=== PATIENT | female | born 1990 | race Caucasian/White ===

== ENCOUNTER 2017-08-14 00:46 | Emergency (ER) | payer SELFPAY ==
[2017-08-14] MEDS ORDERED: NS 1,000 ML IV ONE ×2 (01:09→02:36)
--- NOTE | 2017-08-14 01:09 | EDPHY ---
H & P Stated Complaint: N/V FOR 2 WEEKS, WORSE THE LAST COUPLE DAYS Time Seen by Provider: 08/14/17 00:54 HPI/ROS: CHIEF COMPLAINT: , vomiting HISTORY OF PRESENT ILLNESS: 27-year-old female last menstrual period 06/19 complaining of 3 days of nausea, vomiting. She had 1 episode of vaginal bloody spotting 3 days ago now resolved. No abdominal pain. No back pain. No urinary abnormality. No OBGYN follow-up yet as she recently found out she was with positive home test. No fever or chills. No trauma. PRIMARY CARE PROVIDER: [facility] REVIEW OF SYSTEMS: A ten point review of systems was performed and is negative with the exception of the items mentioned in the HPI PAST MEDICAL & SURGICAL HISTORY: LMP 06/19/2017 SOCIAL HISTORY: Nonsmoker PHYSICAL EXAM (Prior to examination, patient consented to physical exam, hands were washed and my usual and customary physical exam procedures followed) 1) GENERAL: Well-developed, well-nourished, alert and oriented. Appears to be in no acute distress. 2) HEAD: Normocephalic, atraumatic 3) HEENT: Pupils equal, round, reactive to light bilaterally. Sclera anicteric. Nasopharynx, oropharynx, clear, no lesions. Moist mucous membranes 4) NECK: Full range of motion, no meningeal signs. 5) LUNGS: Clear auscultation bilaterally, no wheezes, no rhonchi, no retractions. 6) HEART: Regular rate and rhythm, no murmur, no heave, no gallop. 7) ABDOMEN: No guarding, no rebound, no focal tenderness, negative McBurney's, negative Jordan's, negative Rovsing's, negative peritoneal sign, unable to elicit any abdominal pain on exam 8) MUSCULOSKELETAL: Moving all extremities, no focal areas of tenderness, no obvious trauma. No peripheral edema or discoloration. 9) BACK: No CVA tenderness, no midline vertebral tenderness, no fluctuance, no step-off, no obvious trauma, no visual or palpable abnormality. 10) SKIN: No rash, no petechiae. 11) Psychiatric: Patient is oriented X 3, there is no agitation. DIFFERENTIAL DIAGNOSIS: In no particular include but limited to hyperemesis gravidarum, gastroenteritis, acute appendicitis, ectopic - Personal History LMP (Females 10-55): EDC: 03/28/18 Current Tetanus Diphtheria and Acellular Pertussis (TDAP): Yes - Medical/Surgical History Other PMH: KNEE SURGERY, TONSILECTOMY - Social History Smoking Status: Never smoked Constitutional: Initial Vital Signs Temperature (C) 37.1 C 08/14/17 00:50 Heart Rate 90 08/14/17 00:50 Respiratory Rate 16 08/14/17 00:50 Blood Pressure 142/94 H 08/14/17 00:50 O2 Sat (%) 96 08/14/17 00:50 O2 Delivery Mode Room Air Allergies/Adverse Reactions: No Known Allergies Allergy (Unverified 08/14/17 00:49) Home Medications: Medication Instructions Recorded Cephalexin [Keflex] 500 mg PO TID 7 Days cap 08/14/17 Promethazine HCl [Phenergan] 25 mg PO Q6 #15 tab 08/14/17 Medical Decision Making ED Course/Re-evaluation: 1:08 a.m.: Plan will be diagnostic studies, IV hydration including Rh as she notes a single episode of vaginal spotting a few days ago now resolved. No abdominal pain currently or recently. Will hold on diagnostic imaging at this time. Care of patient under supervision of secondary supervising physician Dr Shah with whom I discussed case . 1:42 a.m.: Re-evaluation after IV antiemetic, feeling improvement, would like to attempt oral fluid challenge. Discussed her laboratory results including Rh positive status. Also noted to have asymptomatic bacteriuria. Urine cultured she will be treated. We discussed asymptomatic bacteriuria in . Doubt pyelonephritis. Doubt urosepsis. - Data Points Laboratory Results: Laboratory Results 08/14/17 01:05 08/14/17 01:05 08/14/17 08/14/17 08/14/17 01:05 01:05 01:05 WBC 11.62 10^3/uL H 10^3/uL (3.80-9.50) RBC 4.89 10^6/uL 10^6/uL (4.18-5.33) Hgb 15.0 g/dL g/dL (12.6-16.3) Hct 42.4 % % (38.0-47.0) MCV 86.7 fL fL (81.5-99.8) MCH 30.7 pg pg (27.9-34.1) MCHC 35.4 g/dL g/dL (32.4-36.7) RDW 12.1 % % (11.5-15.2) Plt Count 346 10^3/uL 10^3/uL (150-400) MPV 9.3 fL fL (8.7-11.7) Neut % (Auto) 77.2 % H % (39.3-74.2) Lymph % (Auto) 16.4 % % (15.0-45.0) [place] % (Auto) 5.4 % % (4.5-13.0) Eos % (Auto) 0.3 % L % (0.6-7.6) Baso % (Auto) 0.3 % % (0.3-1.7) Nucleat RBC Rel Count 0.0 % % (0.0-0.2) Absolute Neuts (auto) 8.96 10^3/uL H 10^3/uL (1.70-6.50) Absolute Lymphs (auto) 1.91 10^3/uL 10^3/uL (1.00-3.00) Absolute Monos (auto) 0.63 10^3/uL 10^3/uL (0.30-0.80) Absolute Eos (auto) 0.03 10^3/uL 10^3/uL (0.03-0.40) Absolute Basos (auto) 0.04 10^3/uL 10^3/uL (0.02-0.10) Absolute Nucleated RBC 0.00 10^3/uL 10^3/uL (0-0.01) Immature Gran % 0.4 % % (0.0-1.1) Immature Gran # 0.05 10^3/uL 10^3/uL (0.00-0.10) Sodium 141 mEq/L mEq/L (134-144) Potassium 4.1 mEq/L mEq/L (3.5-5.2) Chloride 106 mEq/L mEq/L (97-110) Carbon Dioxide 19 mEq/l L mEq/l (22-31) Anion Gap 16 mEq/L mEq/L (8-16) BUN 7 mg/dL mg/dL (7-23) Creatinine 0.7 mg/dL mg/dL (0.6-1.0) Estimated GFR > 60 Glucose 102 mg/dL H mg/dL (70-100) Calcium 9.7 mg/dL mg/dL (8.5-10.4) Total Bilirubin 0.6 mg/dL mg/dL (0.1-1.4) Conjugated Bilirubin 0.3 mg/dL mg/dL (0.0-0.5) Unconjugated Bilirubin 0.3 mg/dL mg/dL (0.0-1.1) AST 27 IU/L IU/L (14-46) ALT 49 IU/L IU/L (9-52) Alkaline Phosphatase 74 IU/L IU/L (38-126) Total Protein 7.2 g/dL g/dL (6.3-8.2) Albumin 4.5 g/dL g/dL (3.5-5.0) Lipase 72 IU/L IU/L (23-300) Beta HCG, Quant Pending Urine Color Urine Appearance Urine pH Ur Specific [place] Urine Protein Urine Ketones Urine Blood Urine Nitrate Urine Bilirubin Urine Urobilinogen Ur Leukocyte Esterase Urine RBC Urine WBC Ur Epithelial Cells Urine Bacteria Urine Mucus Urine Glucose Urine Test Patient ABO/Rh B POSITIVE 08/14/17 08/14/17 01:00 01:00 WBC RBC Hgb Hct MCV MCH MCHC RDW Plt Count MPV Neut % (Auto) Lymph % (Auto) [place] % (Auto) Eos % (Auto) Baso % (Auto) Nucleat RBC Rel Count Absolute Neuts (auto) Absolute Lymphs (auto) Absolute Monos (auto) Absolute Eos (auto) Absolute Basos (auto) Absolute Nucleated RBC Immature Gran % Immature Gran # Sodium Potassium Chloride Carbon Dioxide Anion Gap BUN Creatinine Estimated GFR Glucose Calcium Total Bilirubin Conjugated Bilirubin Unconjugated Bilirubin AST ALT Alkaline Phosphatase Total Protein Albumin Lipase Beta HCG, Quant Urine Color [place] Urine Appearance MODERATELY TURBID Urine pH 5.0 (5.0-7.5) Ur Specific [place] 1.032 H (1.002-1.030) Urine Protein 1+ H (NEGATIVE) Urine Ketones 1+ H (NEGATIVE) Urine Blood 2+ H (NEGATIVE) Urine Nitrate NEGATIVE (NEGATIVE) Urine Bilirubin NEGATIVE (NEGATIVE) Urine Urobilinogen NEGATIVE EU EU (0.2-1.0) Ur Leukocyte Esterase 2+ H (NEGATIVE) Urine RBC 5-10 /hpf H /hpf (0-3) Urine WBC 15-25 /hpf H /hpf (0-3) Ur Epithelial Cells 1+ /lpf /lpf (NONE-1+) Urine Bacteria TRACE /hpf H /hpf (NONE SEEN) Urine Mucus 4+ /lpf H /lpf (NONE-1+) Urine Glucose NEGATIVE (NEGATIVE) Urine Test POSITIVE Patient ABO/Rh Medications Given: Discontinued Medications Cephalexin (Keflex 500 Mg Prepack#4) 1 btl TAKEHOME EDNOW ONE PRN Reason: Protocol Stop: 08/14/17 01:46 Last Admin: 08/14/17 02:00 Dose: 1 btl Cephalexin HCl (Keflex) 500 mg PO EDNOW ONE PRN Reason: Protocol Stop: 08/14/17 01:44 Last Admin: 08/14/17 02:00 Dose: 500 mg Sodium Chloride (Ns) 1,000 mls @ 0 mls/hr IV ONCE ONE PRN Reason: Wide Open Stop: 08/14/17 01:10 Last Admin: 08/14/17 01:12 Dose: 1,000 mls Ondansetron HCl (Zofran) 4 mg IVP EDNOW ONE Stop: 08/14/17 01:12 Last Admin: 08/14/17 01:13 Dose: Not Given Promethazine HCl (Phenergan) 25 mg IVP EDNOW ONE Stop: 08/14/17 01:14 Last Admin: 08/14/17 01:15 Dose: 12.5 mg Departure - Departure Disposition: Home, Routine, Self-Care Clinical Impression: Nausea and vomiting during , Hypovolemia Condition: Good Instructions: Cephalexin (By mouth), Nausea and Vomiting in (ED), Hyperemesis Gravidarum (ED) Additional Instructions: Seek immediate medical attention if you develop new or worsening symptoms, if you develop abdominal pain, fevers, chills, inability to tolerate oral intake or any other symptoms that concerns you. Referrals: [facility]. [Clinic] - 08/16/17 Prescriptions: Cephalexin [Keflex] 500 mg PO TID 7 Days cap Promethazine HCl [Phenergan] 25 mg PO Q6 #15 tab
[2017-08-14] MEDS: ONDANSETRON 4 MG/2 ML VIAL IVP ONE ×2 (01:12→01:13)
[2017-08-14] MEDS ORDERED: PROMETHAZINE HCL 25 MG/ML INJ IVP ONE (01:13)
[2017-08-14 01:19] LABS: PLATELET COUNT 346 10^3/uL (150-400)
[2017-08-14] MEDS ORDERED: CEPHALEXIN 500 MG CAP PO ONE (01:43)
[2017-08-14] MEDS ORDERED: CEPHALEXIN 500MG PREPACK#4 BTL TAKEHOME ONE (01:45)
[2017-08-14 02:54] VITALS: BP 108/51; RESP 18
[2017-08-14 03:17] VITALS: PULSE 85; TEMP 98.1; O2SAT 97
== END 2017-08-14 03:19 | disposition home or self-care (01) ==
DX: O21.0 Mild hyperemesis gravidarum (principal); O99.281 Endocrine, nutritional and metabolic diseases complicating pregnancy, first trimester; E86.1 Hypovolemia; Z3A.00 Weeks of gestation of pregnancy not specified
CPT/HCPCS: 96374; J2550